=== PATIENT | male | born 1950 | race Caucasian/White ===

== ENCOUNTER 2016-07-18 07:25 | Emergency (ER) | payer MEDICARE ==
[2016-07-18] MEDS ORDERED: Ketorolac Tromethamine 30 MG/ML VIAL ONE (07:59)
[2016-07-18] MEDS ORDERED: Fentanyl 100 MCG/2 ML VIAL ONE (07:59)
[2016-07-18 08:12] LABS: #Basophils 0.1 thou/uL (0.0-0.2); #Eosinphils 0.1 thou/uL (0.0-0.7); #Lymphocytes 3.1 thou/uL (1.20-3.40); #Monocytes 0.6 thou/uL (0.11-0.59); %Basophils 1.1 % (0.0-1.0); %Eosinophils 1.5 % (0.0-10.0); %Lymphocytes 38.8 % (21.0-51.0); %Monocytes 7.4 % (0.0-10.0); %Neutrophils 51.2 % (42.0-75.0); Mean Corpuscular HGB CONC 31.9 g/dL (32.0-36.0); Mean Corpuscular Volume 90.8 fl (80.0-94.0); Mean Platelet Volume 10.2 fL (7.4-10.4); Platelet Count 223 thou/uL (130-400); RBC Distribution Width 12.8 % (11.5-14.5); Red Blood Cell (RBC) Count 5.52 mill/uL (4.70-6.10); White Blood Cell (WBC) Count 7.9 thou/uL (4.8-10.8)
[2016-07-18 08:19] LABS: Bilirubin Negative (Negative); Blood, Urine Moderate (Negative); Clarity Turbid (Clear); Glucose, Urine (Dipstick) Negative (Negative); Leukocyte Large (Negative); Nitrite Positive (Negative); Protein, Urine (Dipstick) 30 mg/dL (Neg-Trace); Urobilinogen 0.2 mg/dL (0.2-1.0); pH, Urine 5.5 (5.0-9.0)
[2016-07-18 08:27] LABS: ALT (SGPT) 19 U/L (0-55); AST (SGOT) 16 U/L (5-34); Albumin 4.1 g/dL (3.4-4.8); Alkaline Phosphatase 77 U/L (40-150); Anion Gap 12 mmol/L (10-20); BUN (Urea Nitrogen) 16 mg/dL (8.4-25.7); Bilirubin, Total 0.6 mg/dL (0.2-1.2); Calc. Creatinine Clearance 0 mL/min (70-130); Calcium 9.3 mg/dL (7.8-10.44); Carbon Dioxide 27 mmol/L (23-31); Chloride 109 mmol/L (98-107); Estimated GFR-MDRD 72; Globulin 3.8 g/dL (2.4-3.5); Glucose 96 mg/dL (80-115); Potassium 3.9 mmol/L (3.5-5.1); Protein, Total 7.9 g/dL (5.8-8.1); Sodium 144 mmol/L (136-145)
[2016-07-18 08:31] LABS: Bacteria/HPF 2+ HPF (None Seen); RBC/HPF 0-3 HPF (0-3); Specific Gravity, Urine 1.025 (1.005-1.030); Squamous Epithelial 0-3 HPF (0-3)
[2016-07-18] MEDS ORDERED: cefTRIAXone\\ROCEPHIN 1 GM VIAL ONE (08:41)
[2016-07-18] MEDS ORDERED: Sodium Chloride 0.9% 100 ML ONE (08:45)
--- NOTE | 2016-07-18 18:02 | CT ---
CT ABDOMEN AND PELVIS WITHOUT CONTRAST RENAL STONE PROTOCOL 07/18/[address] of the abdomen and pelvis was performed and compared with a 05/31/08 study. The lung bases are clear. The liver and spleen are normal in size. There is a 1.4 cm low density are a in the right lobe of the liver that is most likely a small cyst. The pancreas and gallbladder were unremarkable. The aorta is normal in size. There is a 2.4 cm right adrenal mass. It has grown by about 1 cm since 2009. Its CT density numbers are clearly negative, however, with a mean measured density of -16. Even though it has grown, it sti ll makes it extraordinarily likely that this is a benign lesion such as an adenoma or myelolipoma. A dditionally, there is a subtle rounded area in the left adrenals gland that is 1.6 cm in size. It do es not appear much different than it did in [address] density is minus 4, also signifying a fatty component that is almost certainly benign. Regarding the kidneys, there is no hydronephrosis or renal calculi. There are some cortical bumps an d irregularities along particularly the right kidney. An ultrasound was done on this patient in 2008 following the last scan. It showed that this was a hypoechoic area but not clearly a cyst. Neverthe less, none of the small rounded areas at the periphery of this kidney seem to have grown at all in t he last eight years. Therefore, it seems unlikely that it is anything but benign. A scan with contra st could be helpful but given no change control analyst time I would wonder if it was necessary. There is no sign of ureteral calculi. The bowel is nondistended and shows no inflammatory changes. T he appendix appears normal. No free air or free fluid was seen. CT of the pelvis was remarkably for a large prostate gland measuring over 6 cm in diameter. It has g rown larger since 2009. There is some mild concentric thickening of the urinary bladder that could b e due to chronic outlet obstruction. IMPRESSION: 1. No evidence of urinary tract calculi. 2. Some minor cortical irregularities and bumps in each kidney, but particularly the right kidn ey. They seem no different than on the [address] Even though they were not shown to be cystic on a 19 12 ultrasound, the lack of growth over time is comforting. See above. 3. 2.3 cm right adrenal mass which has grown by about 1 cm since 2008. Clearly fatty density, s o almost certainly benign. A small left adrenal mass was noted with fat numbers as well. It has not changed over time. 4. Prostatic enlargement. POS: HOME
== END 2016-07-18 09:46 | disposition home or self-care (01) ==
LOC: BURERS 07:25
DX: N12 Tubulo-interstitial nephritis, not specified as acute or chronic (principal); Z87.891 Personal history of nicotine dependence
CPT/HCPCS: 74176; 80053; 81003; 81015; 85025; 87077; 87086; 87186; 96365; 96375; J0696; J1885; J3010; J7050

== ENCOUNTER 2017-07-23 11:01 | Outpatient (CLI) | payer MEDICARE ==
--- NOTE | 2017-07-23 21:26 | RAD ---
RIGHT KNEE THREE VIEWS: 07/23/17 Severe osteoarthritis is present consisting of marked medial joint space narrowing and large osteophy paulie. This includes osteophytes in the patellofemoral joint. There may even be a loose body in the rick nt just below the patella, but this is less certain. A small amount of joint fluid is suggested. No f racture was seen. IMPRESSION: Severe osteoarthritis. POS: HOME
--- NOTE | 2017-07-23 21:28 | RAD ---
LEFT KNEE THREE VIEWS: 07/23/17 Comparison is made with the right knee. Medial joint space narrowing and osteophytes are present, but not nearly as severe as the other side. Patellofemoral osteophytes are present. No large effusions a re seen, but small ones may be present. There is some periosteal reaction associated with the proxima l tibia that I believe is more likely benign than not. IMPRESSION: Osteoarthritis, but not as severe as the right side. POS: HOME
== END 2017-07-23 11:02 | disposition home or self-care (01) ==
LOC: BURRAD 11:01
PROVIDERS: ATTEND Family Medicine
DX: M17.0 Bilateral primary osteoarthritis of knee (principal)

== ENCOUNTER 2018-01-22 17:44 | Emergency (ER) | payer MEDICARE ==
[2018-01-22] MEDS ORDERED: Acetaminophen 500 MG TAB ONE (18:02)
[2018-01-22 18:23] LABS: #Lymphocytes 0.9 thou/uL (1.20-3.40); #Monocytes 0.1 thou/uL (0.11-0.59); #Neutrophils 6.7 thou/uL (1.40-6.50); %Basophils 0.5 % (0.0-1.0); %Eosinophils 0.1 % (0.0-10.0); %Lymphocytes 11.2 % (21.0-51.0); %Monocytes 0.9 % (0.0-10.0); %Neutrophils 87.3 % (42.0-75.0); Hemoglobin 16.2 g/dL (14.0-18.0); Mean Corpuscular HGB CONC 34.5 g/dL (32.0-36.0); Mean Corpuscular Hemoglobin 29.1 pg (27.0-31.0); Mean Corpuscular Volume 84.4 fL (78.0-98.0); Mean Platelet Volume 11.9 fL (7.4-10.4); Platelet Count 170 thou/uL (130-400); RBC Distribution Width 11.9 % (11.5-14.5); Red Blood Cell (RBC) Count 5.56 mill/uL (4.70-6.10); White Blood Cell (WBC) Count 7.7 thou/uL (4.8-10.8)
[2018-01-22 18:39] LABS: ALT (SGPT) 16 U/L (8-55); AST (SGOT) 14 U/L (5-34); Albumin 3.9 g/dL (3.4-4.8); Alkaline Phosphatase 70 U/L (40-150); Anion Gap 16 mmol/L (10-20); BUN (Urea Nitrogen) 12 mg/dL (8.4-25.7); Bilirubin, Total 0.5 mg/dL (0.2-1.2); Calc. Creatinine Clearance 0 mL/min (70-130); Calcium 9.3 mg/dL (7.8-10.44); Carbon Dioxide 22 mmol/L (23-31); Chloride 108 mmol/L (98-107); Estimated GFR-MDRD 70; Globulin 3.4 g/dL (2.4-3.5); Glucose 102 mg/dL (80-115); Potassium 4.1 mmol/L (3.5-5.1); Protein, Total 7.3 g/dL (5.8-8.1); Sodium 142 mmol/L (136-145)
[2018-01-22 18:40] LABS: CKMB 0.4 ng/mL (0-6.6); Troponin I Less than 0.010 ng/mL (< 0.028)
[2018-01-22 19:07] LABS: Clarity Cloudy (Clear)
[2018-01-22 19:08] LABS: Bilirubin Negative (Negative); Blood, Urine Small (Negative); Glucose, Urine (Dipstick) Negative (Negative); Leukocyte Moderate (Negative); Nitrite Positive (Negative); Protein, Urine (Dipstick) 100 mg/dL (Neg-Trace); Specific Gravity, Urine 1.024 (1.005-1.030); Urobilinogen 0.2 mg/dL (0.2-1.0); pH, Urine 5.5 (5.0-9.0)
[2018-01-22 19:10] LABS: Bacteria/HPF 4+ HPF (None Seen); RBC/HPF 0-3 HPF (0-3); Squamous Epithelial 0-3 HPF (0-3)
[2018-01-22] MEDS ORDERED: cefTRIAXone\\ROCEPHIN 2 GM VIAL ONE (19:12)
--- NOTE | 2018-01-22 19:17 | RAD ---
PORTABLE CHEST: Date: 01-22-18 An AP portable film at 1746 hours and follow up at 1751 was compared with a 04-03-09 study. FINDINGS: The heart is normal in size for an AP projection and body habitus. There is no vascular congestion, e riley, or pleural effusion. While there is no major lobar infiltrate, it is slightly streakier than no rmal in the right lung base. While not definitive, I cannot exclude a very minimal amount of infiltra te or atelectasis here. IMPRESSION: Equivocal right basilar streaking. POS: HOME
== END 2018-01-22 19:38 | disposition short-term general hospital (02) ==
LOC: BURERS 17:44
DX: J18.9 Pneumonia, unspecified organism (principal); N39.0 Urinary tract infection, site not specified; Z87.891 Personal history of nicotine dependence; N40.0 Benign prostatic hyperplasia without lower urinary tract symptoms
CPT/HCPCS: 71045; 80053; 81003; 81015; 82553; 83605; 83880; 84484; 85025; 87040; 87077; 87086; 87149; 87186; 87804; 93005; 94640; 96361; 96365; J0696; J7620